=== PATIENT | female | born 1990 ===

== ENCOUNTER 2018-01-26 04:05 | Emergency (ER) | payer MEDICAID ==
[2018-01-26 04:22] VITALS: BMI 39.5
--- NOTE | 2018-01-26 04:40 | ED PDOC ---
Arrival/HPI - General Chief Complaint: Finger,Hand,&Wrist Time Seen by Provider: 01/26/18 04:22 Historian: Patient - History of Present Illness Narrative History of Present Illness (Text): 01/26/18 04:30 27 year old female, with no significant past medical history, presents to the emergency department complaining of bilateral thumb pain after reportedly spraining them when holding a box. Patient states she sprained one thumb holding the box and the other thumb by someone pushing it back. Patient denies any other complaints. Patient denies any fever, chills, chest pain, shortness of breath, abdominal pain, nausea, vomiting, diarrhea, urinary symptoms, back pain, neck pain, headache, dizziness, or any other complaints. Symptom Onset: Gradual Symptom Course: Unchanged Activities at Onset: Light Context: Home Past Medical History - Provider Review Nursing Documentation Reviewed: Yes - Psychiatric Hx Substance Use: No - Surgical History Hx Section: Yes Family/Social History - Physician Review Nursing Documentation Reviewed: Yes Family/Social History: No Known Family HX Smoking Status: Never Smoked Hx Alcohol Use: No Hx Substance Use: No Allergies/Home Meds Allergies/Adverse Reactions: Allergies No Known Allergies Allergy (Verified 01/26/18 04:21) Review of Systems - Physician Review All systems were reviewed & negative as marked: Yes - Review of Systems Constitutional: absent: Fevers, Other (Chills) Respiratory: absent: SOB Cardiovascular: absent: Chest Pain Gastrointestinal: absent: Abdominal Pain, Diarrhea, Nausea, Vomiting Genitourinary Female: absent: Dysuria, Frequency, Hematuria Musculoskeletal: Other (Bilaterial thumb pain). absent: Back Pain, Neck Pain Neurological: absent: Headache, Dizziness Physical Exam Vital Signs Reviewed: Yes Vital Signs Temp Pulse Resp BP Pulse Ox 01/26/18 05:21 98.0 F 80 17 115/72 100 01/26/18 04:22 98.3 F 86 18 109/73 99 Temperature: Afebrile Blood Pressure: Normal Pulse: Regular Respiratory Rate: Normal Appearance: Positive for: Well-Appearing, Non-Toxic, Comfortable Pain Distress: None Mental Status: Positive for: Alert and Oriented X 3 - Systems Exam Head: Present: Atraumatic, Normocephalic Pupils: Present: PERRL Extroacular Muscles: Present: EOMI Conjunctiva: Present: Normal Mouth: Present: Moist Mucous Membranes Neck: Present: Normal Range of Motion Respiratory/Chest: Present: Clear to Auscultation, Good Air Exchange. No: Respiratory Distress, Accessory Muscle Use Cardiovascular: Present: Regular Rate and Rhythm, Normal S1, S2. No: Murmurs Abdomen: No: Tenderness, Distention, Peritoneal Signs Back: Present: Normal Inspection Upper Extremity: Present: Other (Pain with flexion of the thumbs). No: Cyanosis , Edema Lower Extremity: Present: Normal Inspection. No: Edema Neurological: Present: GCS=15, CN II-XII Intact, Speech Normal Skin: Present: Warm, Dry, Normal Color. No: Rashes Psychiatric: Present: Alert, Oriented x 3, Normal Insight, Normal Concentration Medical Decision Making ED Course and Treatment: 01/26/18 04:20 Impression: 27 year old female presents complaining of bilateral thumb pain. Plan: -- Hand Left thumb x-ray -- Hand right thumb x-ray -- Reassess and disposition Progress Notes: 01/26/18 04:45 Hand right thumb x-ray Impression: As read by me, negative for fracture. Hand left thumb x-ray Impression: As read by me, negative for fracture. 01/26/18 04:52 On reevaluation the patient feels better and is in no acute distress. I have discussed the results and plan with the patient, who expresses understanding. Patient given the opportunity to ask question, all questions were answered and there is agreement with the plan to discharge the patient home. Patient is stable for discharge. Patient was instructed to follow up with physician/clinic in 1-2 days or return if symptoms persist/worsen or new concerning symptoms arise. - RAD Interpretation Radiology Orders: 01/26/18 04:34 HAND LEFT THUMB [RAD] Stat HAND RIGHT THUMB [RAD] Stat - Medication Orders Current Medication Orders: Discontinued Medications Ibuprofen (Motrin Tab) 800 mg PO STAT STA Stop: 01/26/18 04:53 Last Admin: 01/26/18 05:17 Dose: 800 mg - Scribe Statement The provider has reviewed the documentation as recorded by the Dominique Desir Provider Scribe Attestation: All medical record entries made by the Elmaibjenn were at my direction and personally dictated by me. I have reviewed the chart and agree that the record accurately reflects my personal performance of the history, physical exam, medical decision making, and the department course for this patient. I have also personally directed, reviewed, and agree with the discharge instructions and disposition. Disposition/Present on Arrival - Present on Arrival Any Indicators Present on Arrival: No History of DVT/PE: No History of Uncontrolled Diabetes: No Urinary Catheter: No History of Decub. Ulcer: No History Surgical Site Infection Following: None - Disposition Have Diagnosis and Disposition been Completed?: Yes Diagnosis: Tendonitis Disposition: HOME/ ROUTINE Disposition Time: 04:52 Patient Plan: Discharge Patient Problems: Current Active Problems Problem Status Onset Tendonitis Acute Condition: GOOD Discharge Instructions (ExitCare): Tendonitis (DC) Prescriptions: Ibuprofen [Motrin Tab] 800 mg PO TID #30 tab Referrals: Keyla Bryant MD [Primary Care Provider] - Follow up with primary Forms: [facility] (Tajik), WORK NOTE, SCHOOL NOTE
[2018-01-26 05:23] VITALS: BP 115/72; PULSE 80; RESP 17; TEMP 98; O2SAT 100
--- NOTE | 2018-01-26 08:47 | RAD ---
PROCEDURE: Left Thumb radiographs. HISTORY: injury COMPARISON: None. TECHNIQUE: AP radiograph of the left hand, as well as spot oblique and lateral images of thumb were obtained. FINDINGS: LEFT THUMB: Normal left thumb, without fracture or focal lesion. Remainder of the left hand (as seen on the AP view) grossly unremarkable. JOINTS: Normal. SOFT TISSUES: Normal. OTHER FINDINGS: None. IMPRESSION: Normal left thumb radiographs.
--- NOTE | 2018-01-26 08:47 | RAD ---
PROCEDURE: Right Thumb radiographs. HISTORY: injury COMPARISON: None. TECHNIQUE: AP radiograph of the right hand, as well as spot oblique and lateral images of thumb were obtained. FINDINGS: RIGHT THUMB: Normal right thumb, without fracture or focal lesion. Remainder of the right hand (as seen on the AP view) grossly unremarkable. JOINTS: Normal. SOFT TISSUES: Normal. OTHER FINDINGS: None. IMPRESSION: Normal right thumb radiographs.
== END 2018-01-26 05:21 | disposition home or self-care (01) ==
LOC: ED 04:05 → MERGE 04:05 → ED 05:21
DX: M77.8 Other enthesopathies, not elsewhere classified (principal)